=== PATIENT | female | born 1985 | race Caucasian/White ===

== ENCOUNTER 2017-09-03 12:09 | Emergency (ER) | payer OTHER ==
[2017-09-03] MEDS: IBUPROFEN 800 MG TAB PO (12:42)
== END 2017-09-03 13:44 | disposition home or self-care (01) ==
LOC: M ED 12:09
DX: Z04.1 Encounter for examination and observation following transport accident (principal); S20.219A Contusion of unspecified front wall of thorax, initial encounter; S40.012A Contusion of left shoulder, initial encounter; V43.52XA Car driver injured in collision with other type car in traffic accident, initial encounter; Y92.410 Unspecified street and highway as the place of occurrence of the external cause
CPT/HCPCS: 71046

== ENCOUNTER → 2020-07-15 | Outpatient (CLI) | payer OTHER ==
--- NOTE | 2020-07-15 11:14 | REP ---
INDICATION: PAIN. COMPARISON: Chest 09/03/2017. TECHNIQUE: Five AP and lateral views thoracic spine. FINDINGS: There is no compression fracture or malalignment. There is normal thoracic kyphosis. There is mild spurring of the T9 through T11 vertebral bodies. There is mild disc space narrowing of T10-11 with mild subchondral sclerosis. The posterior elements are intact. IMPRESSION: No compression fracture. Mild degenerative changes lower thoracic spine. <Electronically signed by Jm Warner > 07/15/20 [id number]
--- NOTE | 2020-07-15 11:17 | REP ---
INDICATION: LOW BACK PAIN. COMPARISON: None. TECHNIQUE: Five views lumbosacral spine. FINDINGS: There is no compression fracture or malalignment. There is normal lumbar lordosis. Disc spaces are well preserved. Posterior elements are intact. 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 IUD is seen centrally in the pelvis. IMPRESSION: No compression fracture. No significant arthritic change. 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 <Electronically signed by Jm Warner > 07/15/20 [id number]
== END ==
LOC: M WUC 09:42
PROVIDERS: ATTEND Nurse Practitioner
DX: M54.5 Low back pain (principal); M54.6 Pain in thoracic spine; Z97.5 Presence of (intrauterine) contraceptive device; M25.78 Osteophyte, vertebrae

== ENCOUNTER → 2024-03-09 | Outpatient (CLI) | payer OTHER | LOC: M PLAIMG 12:38 | PROVIDERS: ATTEND Orthopaedic Surgery | DX: M25.571 Pain in right ankle and joints of right foot (principal); S82.54XD Nondisplaced fracture of medial malleolus of right tibia, subsequent encounter for closed fracture with routine healing ==